=== PATIENT | male | born 1990 | race Caucasian/White ===

== ENCOUNTER 2019-11-02 22:30 | Inpatient (IN) | payer OTHER ==
[~2019-11-02 22:30] MED LIST: Iopamidol-370 76% 500 ML 1 ML ONE
[2019-11-02 23:06] LABS: #Basophils 0.1 thou/uL (0.0-0.2); #Eosinphils 0.1 thou/uL (0.0-0.7); #Monocytes 1.2 thou/uL (0.11-0.59); #Neutrophils 10.6 thou/uL (1.40-6.50); %Basophils 0.5 % (0.0-1.0); %Lymphocytes 14.2 % (21.0-51.0); %Monocytes 8.8 % (0.0-10.0); %Neutrophils 75.5 % (42.0-75.0); Hemoglobin 16.2 g/dL (14.0-18.0); Mean Corpuscular HGB CONC 34.1 g/dL (32.0-36.0); Mean Corpuscular Hemoglobin 29.1 pg (27.0-31.0); Mean Corpuscular Volume 85.4 fL (78.0-98.0); Mean Platelet Volume 7.2 fL (7.4-10.4); Platelet Count 298 thou/uL (130-400); RBC Distribution Width 12.1 % (11.5-14.5); Red Blood Cell (RBC) Count 5.57 mill/uL (4.70-6.10)
[2019-11-02 23:20] LABS: Bilirubin Negative (Negative); Blood, Urine Negative (Negative); Clarity Clear (Clear); Glucose, Urine (Dipstick) Normal (Negative); Leukocyte Negative Leu/uL (Negative); Nitrite Negative (Negative); Protein, Urine (Dipstick) 10 mg/dL (Neg-Trace); Urobilinogen Normal mg/dL (Less than 2)
--- NOTE | 2019-11-02 23:40 | CT ---
CT abdomen and pelvis: 11/02/2019 COMPARISON: None HISTORY: Cramping and constipation TECHNIQUE: Axial CT imaging at 5 mm intervals from the lung bases through the pubic symphysis with IV contrast. Coronal and sagittal reformatted imaging obtained. FINDINGS: The imaged lung bases are unremarkable. No free intraperitoneal air is apparent. The hepati c parenchyma is hypodense, suggesting steatosis. The gallbladder, spleen, pancreas, adrenal glands, and kidneys are unremarkable. There is prominent wall thickening of the sigmoid colon with pericolonic fat stranding. This involves a segment of the sigmoid colon measuring approximately 8-9 cm in length. Adjacent to this markedly inflamed sigmoid colon is a linear area of gas measuring approximately 7-8 mm in length, best seen on axial image 66, consistent with a focal area of microperforation. No associated abscess is seen. No evidence for bowel obstruction. No significant diverticular disease is noted within the sigmoid co shavonne. The appendix is unremarkable. There is a circumaortic left renal vein. Vascular structures appear pat ent. No abdominal or pelvic lymphadenopathy. Review of the osseous structures demonstrates no worrisome lytic or blastic bone lesion third IMPRESSION: Wall thickening and inflammatory change of the sigmoid colon consistent with a focal area of prominent sigmoid colitis. Small volume extraluminal gas in this region is consistent with microperforation. Surgical consultation advised. Dr. Alvarez made aware at 11:33 PM 11/02/2019.
[2019-11-02] MEDS ORDERED: Morphine 4 MG/ML VIAL ONE (23:55)
[2019-11-02] MEDS ORDERED: Piperacillin/Tazobactam 4.5 GM VIAL ONE (23:56)
[2019-11-03 00:09] LABS: Albumin 4.4 g/dL (3.5-5.0)
[2019-11-03 00:11] LABS: Calcium 9.5 mg/dL (7.8-10.44); Chloride 98 mmol/L (98-107); Potassium 3.9 mmol/L (3.5-5.1); Sodium 133 mmol/L (136-145)
[2019-11-03 00:12] LABS: Globulin 3.3 g/dL (2.4-3.5); Glucose 112 mg/dL (70-105); Protein, Total 7.7 g/dL (6.0-8.3)
[2019-11-03 00:13] LABS: Anion Gap 15 mmol/L (10-20); Carbon Dioxide 24 mmol/L (22-29)
[2019-11-03 00:15] LABS: Alkaline Phosphatase 54 U/L (40-110); Calc. Creatinine Clearance 0 mL/min (70-130); Estimated GFR-MDRD Greater than 90
[2019-11-03 00:16] LABS: BUN (Urea Nitrogen) 10 mg/dL (8.9-20.6)
[2019-11-03 00:17] LABS: AST (SGOT) 14 U/L (5-34)
[2019-11-03 00:18] LABS: ALT (SGPT) 29 U/L (8-55); Lipase 22 U/L (8-78)
[2019-11-03] MEDS ORDERED: Lactated Ringer's 1,000 ML IV SCH (01:15)
[2019-11-03] MEDS ORDERED: Morphine 4 MG/ML VIAL SLOW IVP PRN (01:16)
[2019-11-03] MEDS ORDERED: Morphine 2 MG/ML SYRINGE SLOW IVP PRN (01:16)
[2019-11-03] MEDS ORDERED: Ondansetron ODT 4 MG TAB SL PRN (01:17)
[2019-11-03] MEDS ORDERED: Ondansetron PF 4 MG/2 ML Vial IVP PRN (01:17)
[2019-11-03] MEDS ORDERED: Acetaminophen 325 MG TAB PO PRN (01:17)
[2019-11-03 01:51] VITALS: BMI 32.8
[2019-11-03] MEDS ORDERED: Piperacillin/Tazobactam 4.5 GM in Sodium Chloride 0.9% 100 ML IVPB SCH (06:00)
[2019-11-03] MEDS ORDERED: traMADol HCl 50 MG TAB PO PRN ×2 (07:45)
[2019-11-03] MEDS ORDERED: Acetaminophen 500 MG TAB PO PRN (07:45)
[2019-11-03] MEDS ORDERED: Acetaminophen 500 MG TAB PO SCH (07:45)
--- NOTE | 2019-11-03 08:52 | HP ---
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 Yesterday, he presented to [facility] where plain abdominal x-rays were obtained without a CAT scan. He was told that he was constipated. He was told to take MiraLAX and magnesium citrate and take enemas. He continued to have some discomfort, called [facility], and then took an enema without significant results, took MiraLAX and magnesium citrate without significant results. He continued to have pain. He presented to [facility], undergoing CAT scan, revealing changes consistent with diverticulitis with microperforation. White count 14 and hemoglobin 16. Comprehensive metabolic profile normal. The patient states that he usually weighs about 225 pounds, but was surprised to find that he weighed 203 pounds on this visit. The patient reports absence of any prior episodes of abdominal pain, such as this. There is no family history of colon cancer and he has never had a colonoscopy. He is a retired . He states that he has been working along with his to try to live the healthier life, eat better, and to loose weight. The patient has had a sleep apnea even when he was a thin individual in the and had to wear a CPAP. His sleep apnea has markedly worsened since his weight gain, however. He has had to have increase setting since he has had weight gain. ALLERGIES: NONE. HABITS: Tobacco, less than half a pack per day. Alcohol, infrequently. MEDICATIONS: As noted above. Medications for this acute event, recommended by [facility], magnesium citrate, Dulcolax, MiraLAX, Tylenol, and enemas. PAST SURGICAL HISTORY: 1. Nasal surgery for deviated septum. 2. [place] teeth. PAST MEDICAL HISTORY: 1. Sleep apnea, details as noted above. 2. Chronic back pain, managed with [id number] analgesics. REVIEW OF SYSTEMS: Ten-point noncontributory otherwise. PHYSICAL EXAMINATION: VITAL SIGNS: Height 5 feet 6 inches, 203 pounds, temperature 98.3, heart rate 85, and blood pressure 111/70. LUNGS: Clear to auscultation. CARDIAC: Regular rate and rhythm without murmur or gallop. ABDOMEN: Obese and soft. No evident hernias. Tenderness in his left lower quadrant and midline suprapubic with guarding. Remainder of his abdomen is soft with good bowel sounds. EXTREMITIES: No ankle edema. NEUROLOGIC: Intact. HEAD, EARS, EYES, NOSE, AND THROAT: Unremarkable. LABORATORY DATA: Comprehensive metabolic profile normal except for sodium of 133 and glucose of 112. His hemoglobin is 16 and white count 14. ASSESSMENT AND PLAN: 1. Diverticulitis. Would treat with intravenous antibiotics and relative bowel rest. He can have sips and chips and sips of clear liquids at this time. If things are improved tomorrow, he could be started on Augmentin and consider for discharge home. I have recommended he be on a clear liquid, advancing to a soft low-fiber diet for 2 weeks and then transition into a high-fiber after 2 weeks. If he discharged home, he should follow up in my office in [address] Ponce will be covering the weekend. I have advised him to be up in a chair and ambulatory. 2. Sleep apnea. Job ID: [id number]
[2019-11-03] MEDS ORDERED: FLU VACC QS2019-20(6MOS UP)/PF 60 MCG/0.5 ML SYRINGE IM ONE (09:00)
[2019-11-03] MEDS: NS 0.9% w/ 20 MEQ KCL 1,000 ML/1,000 ML BAG IV SCH ×2 (09:23→16:36)
[2019-11-03] MEDS: Enoxaparin Sodium 40 MG/0.4 ML SYRINGE SC SCH (09:25)
[2019-11-03] MEDS: Polyethylene Glycol 3350 17 GM Packet PO SCH (09:25)
[2019-11-03] MEDS: Piperacillin/Tazobactam 4.5 GM in Sodium Chloride 0.9% 100 ML IVPB SCH ×3 (12:30→23:26)
[2019-11-03] MEDS: Ketorolac Tromethamine 30 MG/ML VIAL IVP SCH ×3 (12:30→23:26)
[2019-11-04] MEDS: Piperacillin/Tazobactam 4.5 GM in Sodium Chloride 0.9% 100 ML IVPB SCH ×2 (05:08→11:56)
[2019-11-04] MEDS: Ketorolac Tromethamine 30 MG/ML VIAL IVP SCH ×2 (05:10→11:56)
[2019-11-04] MEDS: NS 0.9% w/ 20 MEQ KCL 1,000 ML/1,000 ML BAG IV SCH ×2 (05:10→08:21)
[2019-11-04 07:19] LABS: #Eosinphils 0.3 thou/uL (0.0-0.7); #Lymphocytes 1.8 thou/uL (1.20-3.40); #Monocytes 0.5 thou/uL (0.11-0.59); #Neutrophils 4.3 thou/uL (1.40-6.50); %Basophils 0.7 % (0.0-1.0); %Eosinophils 3.9 % (0.0-10.0); %Lymphocytes 26.2 % (21.0-51.0); %Neutrophils 62.3 % (42.0-75.0); Hemoglobin 13.4 g/dL (14.0-18.0); Mean Corpuscular HGB CONC 34.7 g/dL (32.0-36.0); Mean Corpuscular Hemoglobin 29.9 pg (27.0-31.0); Mean Corpuscular Volume 86.2 fL (78.0-98.0); Mean Platelet Volume 7.6 fL (7.4-10.4); Platelet Count 212 thou/uL (130-400); RBC Distribution Width 11.9 % (11.5-14.5); Red Blood Cell (RBC) Count 4.48 mill/uL (4.70-6.10)
[2019-11-04 07:32] LABS: Hemoglobin A1c 5.1 % (4.0-6.0)
[2019-11-04 07:36] LABS: Anion Gap 12 mmol/L (10-20); BUN (Urea Nitrogen) 11 mg/dL (8.9-20.6); Calc. Creatinine Clearance 145 mL/min (70-130); Calcium 9.1 mg/dL (7.8-10.44); Carbon Dioxide 25 mmol/L (22-29); Chloride 107 mmol/L (98-107); Estimated GFR-MDRD Greater than 90; Glucose 91 mg/dL (70-105); Potassium 4.6 mmol/L (3.5-5.1); Sodium 139 mmol/L (136-145)
[2019-11-04] MEDS: Enoxaparin Sodium 40 MG/0.4 ML SYRINGE SC SCH (08:21)
[2019-11-04] MEDS: Polyethylene Glycol 3350 17 GM Packet PO SCH (08:21)
[2019-11-04 12:14] VITALS: BP 125/77; TEMP 98
--- NOTE | 2019-11-05 04:27 | DIS ---
DATE OF ADMISSION: 11/03/2019 DATE OF DISCHARGE: 11/04/2019 HOSPITAL COURSE: The patient was admitted with diverticulitis and microperforation. He is doing well. He reports no pain. He has some bloating. He is having liquid stools, but it is starting to thicken up some. No fever or chills. He is tolerating soft diet. On examination, his temperature is 97, pulse 52, blood pressure 102/66. He looks good. Abdomen is soft, nondistended, really no tenderness. His white count is down to normal at 7, H and H are 13 and 38, platelet count 212. ASSESSMENT: Doing well. PLAN: Discharge home. DISCHARGE MEDICATIONS: He is on Augmentin 875 b.i.d. FOLLOWUP: Follow up with Dr. Villafana in 2 weeks. Job ID: [id number]
== END 2019-11-04 14:34 | disposition home or self-care (01) | DRG 392 ==
LOC: ERS 22:30 → SURG B 11-03 00:04
PROVIDERS: ADMIT Specialist; ATTEND Specialist
DX: K57.20 Diverticulitis of large intestine with perforation and abscess without bleeding (principal); F17.200 Nicotine dependence, unspecified, uncomplicated; G89.29 Other chronic pain; M54.9 Dorsalgia, unspecified; G47.30 Sleep apnea, unspecified; Z28.21 Immunization not carried out because of patient refusal; Z79.899 Other long term (current) drug therapy
CPT/HCPCS: 36415; 74177; 80048; 80053; 81003; 83036; 83690; 85025; 96365; 96375; J1650; J1885; J2270; J2543; J3480; J3490; Q9967